=== PATIENT | female | born 1975 | race Two or more races ===

== ENCOUNTER 2018-03-16 05:44 | Inpatient (IN) | payer OTHER ==
[2018-03-16] VITALS (12 sets, daily range): BP systolic 117–177; BP diastolic 70–83
[~2018-03-16] VITALS: Ht 154.9 cm; Wt 74.9 kg
[~2018-03-16 05:44] MED LIST: NKM
[2018-03-16] MEDS ORDERED: Thrombin 5000 units spray kit TOPIC ONE (06:39)
[2018-03-16] MEDS ORDERED: Vancomycin 1gm inj IVPB ONE (06:39)
[2018-03-16] MEDS ORDERED: EPINEPHrine 1mg/1ml Amp ONE (06:39)
[2018-03-16] MEDS ORDERED: Gelfoam Size TOPIC ONE (06:40)
[2018-03-16] MEDS ORDERED: Thrombin 5000 units TOPIC ONE ×2 (06:40→06:41)
[2018-03-16] MEDS ORDERED: Bupivacaine 0.5% Inj 30 ml vial INJ ONE (06:40)
[2018-03-16] MEDS ORDERED: Gelfoam Absorbable 1gm powder pkt TOPIC ONE (06:40)
[2018-03-16] MEDS ORDERED: Bacitracin 50000 Units Vial ONE (06:40)
[2018-03-16] MEDS ORDERED: Midazolam 2mg/2ml Inj ONE (06:46)
[2018-03-16] MEDS ORDERED: fentaNYL 100 mcg/2 mL IV ONE (06:46)
[2018-03-16] MEDS ORDERED: Lidocaine 1% MPF 10mg/ml 5ml ONE (06:48)
[2018-03-16] MEDS ORDERED: Propofol 200mg/20ml IV ONE ×4 (06:48→11:48)
[2018-03-16] MEDS ORDERED: Sodium Chloride 10ml vial INJ ONE ×2 (06:48→12:00)
[2018-03-16] MEDS ORDERED: Bupivacaine 0.25% Inj 30ml INJ ONE (06:55)
[2018-03-16] MEDS ORDERED: Lidocaine 1% 10mg/ml/Epi 0.005mg/ml 30ml vial INJ ONE (06:55)
--- NOTE | 2018-03-16 07:01 | Pre-Procedure Note/Attestation ---
Pre-Procedure Note/Attestation Complete Prior to Procedure Planned Procedure: bilateral Indications for Procedure Pre-Operative Diagnosis: Long history of pain not relieved by consertave treatment, Patient had therapy, chiro injections without relief Attestation I attest that I discussed the nature of the procedure; its benefits; risks and complications; and alternatives (and the risks and benefits of such alternatives ), prior to the procedure, with the patient (or the patient's legal account representative). I attest that, if there was a reasonable possibility of needing a blood transfusion, the patient (or the patient's legal account representative) was given the [facility] standardized written summary, pursuant to the Jcarlos Maribeth Blood Safety Act ([place] Health and Safety Code # 1645, as amended). I attest that I re-evaluated the patient just prior to the surgery and that there has been no change in the patient's H&P, except as documented below: Chris De La Paz M.D. Mar 16, 2018 07:01
[2018-03-16] MEDS ORDERED: Metoclopramide 10mg/2ml Inj IVP PRN (07:15)
[2018-03-16] MEDS ORDERED: Naloxone 0.4mg/ml Inj IVP PRN (07:15)
[2018-03-16] MEDS ORDERED: Zemuron 50mg/5ml Inj IV ONE (07:17)
[2018-03-16] MEDS ORDERED: Heparin 5000 units/ml inj ONE (08:09)
[2018-03-16] MEDS ORDERED: LR 1000ml 1,000 ML IVLG SCH (08:49)
--- NOTE | 2018-03-16 08:59 | Anethesia Preoperative Eval ---
Anesthesia Pre-op PMH/ROS General Date of Evaluation: Mar 16, 2018 Time of Evaluation: 07:00 Anesthesiologist: Phuc ASA Score: ASA 1 Mallampati Score Class I : Soft palate, uvula, fauces, pillars visible Class II: Soft palate, uvula, fauces visible Class III: Soft palate, base of uvula visible Class IV: Only hard plate visible Mallampati Classification: Class II Surgeon: Brain Diagnosis: Disc displacement Surgical Procedure: ALIF, PLIF L5-S1 Family History: no anesthesia problems Allergies: Coded Allergies: No Known Allergies (Unverified , 03/13/18) Medications: see eMAR Past Medical History Cardiovascular: Denies: HTN, CAD, DE, valve dz, arrhythmia, other Pulmonary: Denies: asthma, COPD, KENIA, other Gastrointestinal/Genitourinary: Denies: GERD, CRI, ESRD, other Neurologic/Psychiatric: Denies: dementia, CVA, depression/anxiety, TIA, other Endocrine: Denies: DM, hypothyroidism, steroids, other HEENT: Denies: cataract (L), cataract (R), glaucoma, [place] (L), [place] (R), other Hematology/Immune: Denies: anemia, DVT, bleeding disorder, other Musculoskeletal/Integumentary: Denies: OA, RA, DJD, DDD, edema, other PMH Narrative: Denies significant PMH PSxH Narrative: Hip surgery, C/S Anesthesia Pre-op Phys. Exam Physician Exam Last Vital Signs Date Time Temp Pulse Resp B/P (MAP) Pulse Ox O2 Delivery O2 Flow Rate FiO2 03/16/18 06:57 Room Air 03/16/18 06:56 97.4 60 20 127/83 (98) 98 97.4 Constitutional: NAD Cardiovascular: RRR, no M/R/G Respiratory: CTA Gastrointestinal: S/NT/ND Airway Exam Mallampati Score: Class II MO: full ROM: full Teeth: intact Anesthesia Pre-op A/P Labs WNL Urine Test Test 03/16/18 05:53 Urine HCG, Qualitative Negative (NEGATIVE) Studies Pre-op Studies: EKG - NSR, CXR - NAD Risk Assessment & Plan Assessment: Healthy female for ALIF and PLIF Plan: GETA, SedLine Status Change Before Surgery: No Pre-Antibiotics Drug: Ancef Given Within 1 Hr of Incision: Yes Time Given: 07:30 Jcarlos Friend MD Mar 16, 2018 08:59
[2018-03-16] MEDS ORDERED: DiphenhydrAMINE 50mg/ml Inj IVP PRN (09:00)
[2018-03-16] MEDS ORDERED: LORazepam Inj 2mg/ml 1ml IV PRN (09:00)
[2018-03-16] MEDS ORDERED: fentaNYL 100 mcg/2 mL IV PRN (09:00)
[2018-03-16] MEDS: Vancomycin 1 GM in D5W 275 ML IVPB SCH ×2 (09:00→21:16)
[2018-03-16] MEDS ORDERED: Meperidine 50mg/ml Inj(FOR RIGORS ONLY) IVP PRN (09:00)
--- NOTE | 2018-03-16 09:00 | Immediate Post-Op Evaluation ---
Immediate Post-Op Evalulation Immediate Post-Op Evalulation Procedure: ALIF and PLIF L5-S1 Date of Evaluation: Mar 16, 2018 Time of Evaluation: 12:35 IV Fluids: 2200 Estimated Blood Loss: 100 Urinary Output: 1000 Blood Pressure Systolic: 120 Blood Pressure Diastolic: 71 Pulse Rate: 80 Respiratory Rate: 18 O2 Sat by Pulse Oximetry: 99 Temperature (Fahrenheit): 97.5 Pain Score (1-10): 0 Nausea: No Vomiting: No Complications No complication Patient Status: awake, patent, extubated, none Hydration Status: adequate Drug: Ancef Given Within 1 Hr of Incision: Yes Time Given: 07:30 Jcarlos Friend MD Mar 16, 2018 09:00
[2018-03-16] MEDS ORDERED: PCA Education Pamphlet MISC ONE (09:30)
[2018-03-16] MEDS ORDERED: PCA Morphine 1mg/ml 30 ML IV PRN (09:30)
[2018-03-16] MEDS ORDERED: Rate Change PCA 1 Each MISC PRN ×2 (09:30)
[2018-03-16] MEDS ORDERED: PCA Education Pamphlet MISC SCH (09:30)
[2018-03-16] MEDS ORDERED: Morphine Sulfate 2mg/ml Inj(IV/IM USE ONLY) IV PRN (09:30)
[2018-03-16] MEDS ORDERED: Morphine Sulfate 4mg/ml Inj (IV USE ONLY) IV PRN (09:30)
[2018-03-16] MEDS: PCA Morphine 1mg/ml 30 ML IV PRN (13:19)
--- NOTE | 2018-03-16 14:20 | Diagnostic Imaging Report ---
Indication: Back pain Comparison: None Findings: 10 fluoroscopic views of the lumbar spine were obtained. Intraoperative imaging showing posterior fusion at L5-S1 with anterior compression plate for interbody fusion also present. IMPRESSION: Intraoperative imaging
[2018-03-16] MEDS: ceFAZolin sod 1 GM in D5W 55 ML IV SCH ×2 (15:24→23:47)
[2018-03-16] MEDS: D5 1/2NS w/KCl 20mEq 1,000 ML IV SCH ×2 (15:24→23:48)
[2018-03-16] MEDS: PCA shift volume MISC SCH (19:00)
--- NOTE | 2018-03-16 21:00 | Operative Note - Dictated ---
DATE OF OPERATION: 03/16/2018 VASCULAR SURGEON: Jef Garcia M.D. SPINE SURGEON: Chris De La Paz M.D. PREOPERATIVE DIAGNOSIS: Degenerative disc disease. POSTOPERATIVE DIAGNOSIS: Degenerative disc disease. PROCEDURE PERFORMED: Anterior retroperitoneal exposure of L5-S1 vertebral interspace. INDICATIONS: This is a very pleasant woman who was seen in my office prior to surgery. She was scheduled for anterior lumbar spine surgery. She has a prior transverse abdominal incision. She has no history of deep venous thrombosis or bleeding complications. She has not had anterior spine surgery in the past. She is made aware of the need for an abdominal approach for exposure of the anterior surface of the lumbar spine, possibly vascular injury, possible need for blood transfusion, deep venous thrombosis were all explicitly discussed with her prior to surgery. DESCRIPTION OF FINDINGS: Her prior transverse incision was used. A left retroperitoneal approach was used. There was no vascular injury. There was no peritoneal or ureteral violation. Blood loss was less than 50 mL for the anterior portion of the case. Fluoroscopy used to confirm the appropriate level. Exposure of L5-S1 was obtained below the iliac bifurcation. DESCRIPTION OF PROCEDURE: The patient was taken to the operative room. General anesthesia was used. IV antibiotics were given. The patient's abdomen was prepped and draped. Appropriate time-out procedure was taken. A transverse incision was made through her prior scar. Flaps were raised superiorly. The anterior fascia was incised longitudinally in midline. A plane was identified posterior to the left rectus abdominis developed posterolaterally towards the patient's left. The retroperitoneal space was bluntly entered below the arcuate line. The peritoneum and ureter were mobilized towards the patient's right exposing the left common iliac artery and vein. Dissection was carried on the undersurface of the left common iliac vein, which was mobilized superiorly and laterally. The middle sacral vessels were ligated using bipolar electrocautery and this allowed us to then expose the anterior surface of L5-S1. The Omni retractor was set in place. Fluoroscopy was used to confirm the appropriate level and instrumentation was performed at the L5-S1 and dictated separately. Upon completion, retractors were gently removed. The peritoneum and ureter were intact. Iliac vessels were intact. Anterior fascia was closed with #1 PDS in a running fashion. The skin and subcutaneous tissue were closed with 3-0 Vicryl and 4-0 Monocryl in running subcuticular closure technique. Jef Garcia M.D. DR: ANA JOB#: [id number] CC: Lauren Epperson M.D. ; FAX#: [phone]
--- NOTE | 2018-03-16 22:45 | Operative Note - Dictated ---
DATE OF OPERATION: 03/16/2018 PREOPERATIVE DIAGNOSES: 1. L5-S1 herniated nucleus pulposus. 2. L5-S1 retrolisthesis. POSTOPERATIVE DIAGNOSES: 1. L5-S1 herniated nucleus pulposus. 2. L5-S1 retrolisthesis. PROCEDURE: 1. Posterior pedicle screws, L5-S1, using the J&J System. 2. Posterior bilateral lateral fusion. ESTIMATED BLOOD LOSS: Approximately 30 mL from the posterior part of the operation. COMPLICATIONS: One of the towers disengaged prior to locking in the set screw. The wound was opened slightly so we can visualize the kaden into the head and then the set screw was placed in an open manner. While we had the wound open, we did an open fusion on the left and then a closed percutaneous fusion on the right. SURGEON: Chris De La Paz M.D. PHOTOENGRAVING PHOTOGRAPHER: Joel Hemphill M.D. ANESTHESIA: General with endotracheal intubation. ANESTHESIOLOGIST: DESCRIPTION OF PROCEDURE: Under general anesthesia with endotracheal intubation, the patient was placed in the prone position where the back was then prepped and draped in the usual manner. C-arm was pulled into position, and under C-arm and fluoroscopic control, the pedicles at L5 and S1 were identified. Trocars were then placed into the pedicles. First in a percutaneous fashion, guidewires were placed through trocar and then the screw holes were then opened using a J&J cannulated knife system. Following that, the screw holes were then tapped sequentially and then screws were placed in. They were 6.0 outer diameter screws, 40 mm in length. At S1, they were placed using a modified Eduardo technique. Once the screws were inserted, then the rods were percutaneously introduced through the screw heads. Locking were applied and then on the right side, there were appropriately torqued. On the left side, it was torqued at S1. At L5, while we were torquing it, the tower disengaged. So, I had to open up that wound slightly and then under direct vision, a set screw was placed in the locking head and then it was torqued appropriately. Since that wound was opened, using Patrick's, we decorticated the sacral ala and the L5 transverse process, and then local bone and demineralized matrix was packed along the fusion gutters. On the left, I inserted a Patrick in a percutaneous technique, decorticated the fusion gutters, then used local bone along that area. Following this, the wounds were closed in layers using #0 for fascia and then 2-0 subcuticular closure. Steri-Strips were applied. Sterile dressings were applied over this. The patient was stable in the recovery room and judged to be in stable condition and neurologically intact. Chris De La Paz MD DR: KAREN JOB#: [id number] CC: Joel Hemphill M.D.; Fax#: [phone] [email or web address]
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
[2018-03-17] VITALS: BP 124/70
[2018-03-17 04:00] VITALS: BP 122/74
[2018-03-17] MEDS: D5 1/2NS w/KCl 20mEq 1,000 ML IV SCH ×2 (06:16→18:25)
[2018-03-17] MEDS: PCA shift volume MISC SCH ×2 (07:00→19:00)
[2018-03-17 07:38] LABS: HEMATOCRIT 37.9 % (37.0-47.0); HEMOGLOBIN 13.1 G/DL (12.0-16.0); MEAN CORPUSCULAR VOLUME 85 FL (80-99); PLATELET COUNT 240 K/UL (150-450); RED BLOOD COUNT 4.43 M/UL (4.20-5.40); RED CELL DISTRIBUTION WIDTH 11.2 % (11.6-14.8); WHITE BLOOD COUNT 11.1 K/UL (4.8-10.8)
[2018-03-17] MEDS ORDERED: HYDROcodone/Acetamin 7.5/325 ORAL (07:49)
--- NOTE | 2018-03-17 07:58 | Brief Operative Note ---
Immediate Post Operative Note Operative Note Pre-op Diagnosis: Long history of pain not relieved by consertave treatment, Patient had therapy, chiro injections without relief Procedure: anterior and posterior L5-S1 fusion Post-op Diagnosis: herniated disk L5-S1 Post-op Diagnosis: same as pre-op Surgeon: hira Cook Railroad: danish rocha Anesthesia: general Specimen: yes Complications: none Condition: stable Fluids: 1000 cc Estimated Blood Loss: volume - 50 cc Drains: none Implant(s) used?: Yes Chris De La Paz M.D. Mar 17, 2018 07:58
[2018-03-17 08:00] VITALS: BP 95/54
--- NOTE | 2018-03-17 08:00 | Orthopedic Progress Note ---
Orthopedic - Progress Note Subjective Symptoms: improved Objective Vital Signs Last 24 Hour Vital Signs Date Time Temp Pulse Resp B/P (MAP) Pulse Ox O2 Delivery O2 Flow Rate FiO2 03/17/18 04:00 98.3 74 18 122/74 (90) 99 98.3 03/17/18 00:00 18 03/17/18 00:00 97.1 88 18 124/70 (88) 100 97.1 03/16/18 21:00 Nasal Cannula 2.0 Nasal Cannula 2.0 03/16/18 20:00 18 03/16/18 20:00 97.6 75 18 146/74 (98) 98 97.6 03/16/18 16:00 18 03/16/18 16:00 97.8 69 18 118/71 (87) 99 97.8 03/16/18 14:30 97.0 74 18 127/76 (93) 98 97.0 03/16/18 13:52 98 66 14 117/70 25 Nasal Cannula 3 98.0 03/16/18 13:38 97.8 03/16/18 13:38 66 14 117/70 25 Simple Mask 8 03/16/18 13:20 66 14 122/78 99 Simple Mask 8 03/16/18 13:19 97.8 03/16/18 13:19 14 03/16/18 13:05 78 14 122/72 99 Simple Mask 8 03/16/18 12:50 68 16 177/73 99 Simple Mask 8 03/16/18 12:35 74 16 122/73 99 Simple Mask 8 03/16/18 12:31 97.3 03/16/18 12:31 207.1 80 18 99 03/16/18 12:30 75 16 120/76 99 Simple Mask 8 03/16/18 12:25 97.5 80 16 120/71 99 Simple Mask 8 97.5 I&O Intake and Output 03/16/18 03/17/18 19:00 07:00 Intake Total 2200 ml Output Total 1100 ml 500 ml Balance 1100 ml -500 ml Intake IV Total 2200 ml Output Urine Total 1000 ml Estimated Blood Loss 100 ml Other 500 ml Wound: clean Drains: none Neuro Status: normal Vascular Status: normal Assessment Post-op Diagnosis herniated disk L5-S1 Procedure Performed anterior and posterior L5-S1 fusion Plan Plan: continue antibiotics - discharge in am, discharge plan, discharge to home Chris De La Paz M.D. Mar 17, 2018 08:00
--- NOTE | 2018-03-17 08:33 | 48 Hour Post Anesthesia Eval ---
Post Anesthesia Evaluation Procedure: ALIF and PLIF L5-S1 Date of Evaluation: Mar 17, 2018 Time of Evaluation: 11:55 Blood Pressure Systolic: 122 0: 74 Pulse Rate: 74 Respiratory Rate: 18 Temperature (Fahrenheit): 98.3 O2 Sat by Pulse Oximetry: 99 Airway: patent Nausea: No Vomiting: No Pain Intensity: 2 Hydration Status: adequate Cardiopulmonary Status: Stable Mental Status/LOC: patient returned to baseline Follow-up Care/Observations: As per surgery Post-Anesthesia Complications: No anesthetic complication Follow-up care needed: N/A Jcarlos Friend MD Mar 17, 2018 08:33
[2018-03-17 08:50] LABS: ANION GAP 10 mmol/L (5-15); BLOOD UREA NITROGEN 5 mg/dL (7-18); CALCIUM 7.6 MG/DL (8.5-10.1); CARBON DIOXIDE 24 MMOL/L (21-32); CHLORIDE 104 MMOL/L (98-107); CREATININE 0.7 MG/DL (0.55-1.30); POTASSIUM 3.7 MMOL/L (3.5-5.1); SODIUM 137 MMOL/L (136-145)
[2018-03-17] MEDS: ceFAZolin sod 1 GM in D5W 55 ML IV SCH (08:53)
[2018-03-17 12:00] VITALS: BP 111/52
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
[2018-03-17] MEDS: PCA Morphine 1mg/ml 30 ML IV PRN (13:01)
[2018-03-17 16:00] VITALS: BP 98/61
[2018-03-17 20:35] VITALS: BP 115/70
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
[2018-03-18 00:51] VITALS: BP 120/76
[2018-03-18 04:00] VITALS: BP 114/74
[2018-03-18] MEDS: PCA shift volume MISC SCH (07:00)
[2018-03-18] MEDS: D5 1/2NS w/KCl 20mEq 1,000 ML IV SCH ×2 (07:12→14:15)
[2018-03-18 08:00] VITALS: BP 109/64
[2018-03-18] MEDS: PCA Morphine 1mg/ml 30 ML IV PRN (08:15)
[2018-03-18] MEDS ORDERED: Morphine Sulfate 2mg/ml Inj(IV/IM USE ONLY) IV PRN (09:30)
[2018-03-18] MEDS ORDERED: Morphine Sulfate 4mg/ml Inj (IV USE ONLY) IV PRN (09:30)
[2018-03-18] MEDS ORDERED: HYDROcodone/Acetamin 7.5/325 tab ORAL PRN ×2 (09:30)
[2018-03-18 11:48] VITALS: BP 112/67
[2018-03-18 16:00] VITALS: BP 113/69
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
[2018-03-18] MEDS ORDERED: PCA shift volume MISC SCH (19:00)
[2018-03-18 20:00] VITALS: BP 100/60
[2018-03-18] MEDS: HYDROcodone/Acetamin 10/325 tab ORAL PRN (21:16)
[2018-03-19] VITALS: BP 97/63
[2018-03-19] MEDS: D5 1/2NS w/KCl 20mEq 1,000 ML IV SCH (02:09)
[2018-03-19 04:00] VITALS: BP 120/70
[2018-03-19] MEDS: HYDROcodone/Acetamin 10/325 tab ORAL PRN (05:18)
[2018-03-19 08:01] VITALS: BP 102/74
--- NOTE | 2018-03-19 09:04 | Orthopedic Progress Note ---
Orthopedic - Progress Note Subjective Symptoms: improved Objective Vital Signs Last 24 Hour Vital Signs Date Time Temp Pulse Resp B/P (MAP) Pulse Ox O2 Delivery O2 Flow Rate FiO2 03/19/18 08:03 Room Air 03/19/18 08:01 98.1 70 20 102/74 (83) 93 98.1 03/19/18 04:00 97.5 72 19 120/70 (87) 96 97.5 03/19/18 00:00 98.1 71 19 97/63 (74) 100 98.1 03/18/18 21:00 Room Air 03/18/18 20:00 97.3 72 18 100/60 (73) 100 97.3 03/18/18 18:23 100.8 03/18/18 17:24 100.8 03/18/18 16:00 100.8 93 20 113/69 (84) 100 100.8 03/18/18 14:30 20 03/18/18 12:00 16 03/18/18 11:48 98.9 83 20 112/67 (82) 99 98.9 I&O Intake and Output 03/18/18 03/19/18 19:00 07:00 Intake Total 1050 ml 100 ml Balance 1050 ml 100 ml Intake IV Total 1050 ml 100 ml # Voids 3 3 Wound: clean, dry Drains: none Neuro Status: normal Vascular Status: normal Assessment Post-op Diagnosis herniated disk L5-S1 Procedure Performed anterior and posterior L5-S1 fusion Plan Plan: discharge to home Chris De La Paz M.D. Mar 19, 2018 09:04
[2018-03-19] MEDS ORDERED: VIBRAMYCIN100 MG ORAL (09:13)
[2018-03-19] MEDS ORDERED: NORCO 10-325 T1 EACH ORAL (09:14)
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
== END 2018-03-19 11:12 | disposition home or self-care (01) | DRG 454 ==
LOC: SDSOVERFLO 05:44 → 3E 14:20
PROC: 0SG33J1 Fusion of Lumbosacral Joint with Synthetic Substitute, Posterior Approach, Posterior Column, Percutaneous Approach (ICD-10-PCS; principal; 2018-03-16 07:00)
PROC: 0SG30A0 Fusion of Lumbosacral Joint with Interbody Fusion Device, Anterior Approach, Anterior Column, Open Approach (ICD-10-PCS; principal; 2018-03-16 07:00)
PROC: 0SB40ZZ Excision of Lumbosacral Disc, Open Approach (ICD-10-PCS; principal; 2018-03-16 07:00)
PROC: 0SG30J1 Fusion of Lumbosacral Joint with Synthetic Substitute, Posterior Approach, Posterior Column, Open Approach (ICD-10-PCS; principal; 2018-03-16 07:00)
DX: M51.27 Other intervertebral disc displacement, lumbosacral region (principal); K56.7 Ileus, unspecified; V49.88XS Car occupant (driver) (passenger) injured in other specified transport accidents, sequela; R33.8 Other retention of urine
CPT/HCPCS: 36415; 72020; 76001; 80048; 81025; 85007; 85025; 86850; 86900; 86901; 87081; 94003; 94150; J2250; J2405